=== PATIENT | female | born 1940 | race Caucasian/White ===

== ENCOUNTER 2016-06-03 12:10 | Day surgery (SDC) | payer MEDICARE ==
--- NOTE | ~2016-06-03 | EGD ---
EGD REPORT [facility] [address] [id number] NAME: MARISA SANTA : 40 STATUS : REG [facility] PAT#: [id number] AGE: 76 ADM/REG DATE : 06/03/16 MR#: [id number] REPORT SERV DATE: 06/03/16 DICTATED BY: JUAN JOSÉ VALDEZ DATE: 06/03/16 REPORT STATUS : Draft [facility] DATE: 06/03/16 Endoscopy Center Patient Name: Marisa Santa Date of : 1940 Attending MD: JUAN JOSÉ VALDEZ MD Procedure Date No Time: 06/03/2016 Procedure: Upper GI endoscopy Indications: Epigastric abdominal pain, Dysphagia Referring MD: TATYANA RIVERS MD Medicines: Propofol per Anesthesia Complications: No immediate complications. Estimated blood loss: None. Procedure: Pre-Anesthesia Assessment: - After reviewing the risks and benefits, the patient was deemed in satisfactory condition to undergo the procedure. - Prior to the procedure, a History and Physical was performed, and patient medications and allergies were reviewed. The patient's tolerance of previous anesthesia was also reviewed. The risks and benefits of the procedure and the sedation options and risks were discussed with the patient. All questions were answered, and informed consent was obtained. Prior Anticoagulants: The patient has taken no previous anticoagulant or antiplatelet agents. ASA Grade Assessment: II - A patient with mild systemic disease. After reviewing the risks and benefits, the patient was deemed in satisfactory condition to undergo the procedure. After obtaining informed consent, the endoscope was passed under direct vision. Throughout the procedure, the patient's blood pressure, pulse, and oxygen saturations were monitored continuously. The GIF [id number] was introduced through the mouth, and advanced to the third part of duodenum. The upper GI endoscopy was accomplished without difficulty. The patient tolerated the procedure well. Findings: A mild Schatzki ring (acquired) was found at the gastroesophageal junction. A guidewire was placed and the scope was withdrawn. Dilation was performed with a Savary dilator with no resistance at 48 Fr. Estimated blood loss: none. A 3 cm hiatus hernia was present. The examined duodenum was normal. Impression: - Mild Schatzki ring. Dilated. EGD REPORT [address] [address] NAME: MARISA SANTA : [birth year] STATUS : REG [facility] PAT#: [id number] AGE: 76 ADM/REG DATE : 06/03/16 MR#: [id number] REPORT SERV DATE: 06/03/16 DICTATED BY: JUAN JOSÉ VALDEZ DATE: 06/03/16 REPORT STATUS : Draft [facility]: [facility] DATE: 06/03/16 - Hiatus hernia. - Normal examined duodenum. Recommendation: - Discharge patient to home (ambulatory). - Return to previous diet. - Continue present medications. - Take Prilosec OTC 20 mg daily before meal for 2 months. - Perform a colonoscopy today. - Patient has a contact number available for emergencies. The signs and symptoms of potential delayed complications were discussed with the patient. Return to normal activities tomorrow. Written discharge instructions were provided to the patient. Procedure Code(s): --- Professional --- 35557, Esophagogastroduodenoscopy, flexible, transoral; with insertion of guide wire followed by passage of dilator(s) through esophagus over guide wire Diagnosis Code(s): --- Professional --- K22.2, Esophageal obstruction K44.9, Diaphragmatic hernia without obstruction or gangrene R10.13, Epigastric pain R13.10, Dysphagia, unspecified CPT copyright 2013 [employer]. All rights reserved. The codes documented in this report are preliminary and upon cap jewel plate assembler review may be revised to meet current compliance requirements. JUAN JOSÉ VALDEZ MD 06/03/2016 1:41 PM This report has been signed electronically. Number of Addenda: 0 Note Initiated On: 06/03/2016 1:28 PM Scope Withdrawal Time 0 hours 0 minutes 0 seconds [address] [id number]
--- NOTE | ~2016-06-03 | EGD ---
EGD REPORT [facility] [address] [address] NAME: MARISA SANTA : 40 STATUS : REG [facility] PAT#: [id number] AGE: 76 ADM/REG DATE : 06/03/16 MR#: [id number] REPORT SERV DATE: 06/03/16 DICTATED BY: JUAN JOSÉ VALDEZ DATE: 06/03/16 REPORT STATUS : Draft TRANSCRIBED BY: [facility] DATE: 06/03/16 Endoscopy Center Patient Name: Marisa Santa Date of : 1940 Attending MD: JUAN JOSÉ VALDEZ MD Procedure Date No Time: 06/03/2016 Procedure: Colonoscopy Indications: Follow-up for history of adenomatous polyps in the colon, Last colonoscopy: May 2011 Referring MD: TATYANA RIVERS MD Medicines: Propofol per Anesthesia Complications: No immediate complications. Estimated blood loss: None. Procedure: Pre-Anesthesia Assessment: - After reviewing the risks and benefits, the patient was deemed in satisfactory condition to undergo the procedure. - Prior to the procedure, a History and Physical was performed, and patient medications and allergies were reviewed. The patient's tolerance of previous anesthesia was also reviewed. The risks and benefits of the procedure and the sedation options and risks were discussed with the patient. All questions were answered, and informed consent was obtained. Prior Anticoagulants: The patient has taken no previous anticoagulant or antiplatelet agents. ASA Grade Assessment: II - A patient with mild systemic disease. After reviewing the risks and benefits, the patient was deemed in satisfactory condition to undergo the procedure. After I obtained informed consent, the scope was passed under direct vision. Throughout the procedure, the patient's blood pressure, pulse, and oxygen saturations were monitored continuously. The CF [id number] was introduced through the anus and advanced to the cecum, identified by appendiceal orifice and ileocecal valve. The colonoscopy was performed with difficulty due to significant looping and a tortuous colon. Successful completion of the procedure was aided by applying abdominal pressure. The ileocecal valve and appendiceal orifice were photographed. The patient tolerated the procedure well. The quality of the bowel preparation was good. The bowel preparation used was split dose polyethylene glycol (PEG). Scope withdrawal time was greater than 6 minutes. Findings: EGD REPORT [address] [address] NAME: MARISA SANTA : [birth year] STATUS : REG [facility] PAT#: [id number] AGE: 76 ADM/REG DATE : 06/03/16 MR#: [id number] REPORT SERV DATE: 06/03/16 DICTATED BY: JUAN JOSÉ VALDEZ DATE: 06/03/16 REPORT STATUS : Draft TRANSCRIBED BY: [facility] DATE: 06/03/16 The perianal and digital rectal examinations were normal. Pertinent negatives include normal sphincter tone. Non-bleeding internal hemorrhoids were found during retroflexion and were moderate. Multiple small-mouthed diverticula were found in the sigmoid colon. A sessile polyp was found in the ascending colon. The polyp was 8 mm in size. The polyp was removed with a hot snare. Resection and retrieval were complete. Estimated blood loss: none. The exam was otherwise without abnormality. Impression: - Non-bleeding internal hemorrhoids. - Moderate diverticulosis in the sigmoid colon. - The examination was otherwise normal. - Irritable bowel syndrome with diarrhea. Recommendation: - Discharge patient to home (ambulatory). - High fiber diet indefinitely. - Continue present medications. - Discontinue pepermint oil and begin IBgard 1-2 twice daily as needed for abdominal pain. - Await pathology results. - Repeat colonoscopy in 5 years for surveillance. - Return to GI clinic PRN. - Patient has a contact number available for emergencies. The signs and symptoms of potential delayed complications were discussed with the patient. Return to normal activities tomorrow. Written discharge instructions were provided to the patient. Procedure Code(s): --- Professional --- 40611, Colonoscopy, flexible, proximal to splenic flexure; with removal of tumor(s), polyp(s), or other lesion(s) by snare technique Diagnosis Code(s): --- Professional --- K64.8, Other hemorrhoids K58.9, Irritable bowel syndrome without diarrhea K57.30, Diverticulosis of large intestine without perforation or abscess without bleeding Z86.010, Personal history of colonic polyps CPT copyright 2013 [employer]. All rights reserved. The codes documented in this report are preliminary and upon passenger car cleaning supervisor review may be revised to meet current compliance requirements. EGD REPORT [facility] [address] [address] NAME: MARISA SANTA : 40 STATUS : REG [facility] PAT#: [id number] AGE: 76 ADM/REG DATE : 06/03/16 MR#: [id number] REPORT SERV DATE: 06/03/16 DICTATED BY: JUAN JOSÉ VALDEZ DATE: 06/03/16 REPORT STATUS : Draft TRANSCRIBED BY: [facility] DATE: 06/03/16 JUAN JOSÉ VALDEZ MD 06/03/2016 2:08 PM This report has been signed electronically. Number of Addenda: 0 Note Initiated On: 06/03/2016 1:29 PM Scope Withdrawal Time 0 hours 7 minutes 15 seconds [address] [id number]
[~2016-06-03 12:10] MED LIST: ASAB PO; BELLADONNA PO; CALTRA600D PO; CO Q-10100 MG PO; HARD NAILS PO; HOMEOPATHIC MEDS PO; NORV5 PO; VITAMIN D31000 UNIT PO; VITC500 PO; VITE PO; [UNRECOGNIZED DRUG - OTHER] PO
== END 2016-06-03 23:59 | disposition home or self-care (01) ==
LOC: DMU 12:10
PROVIDERS: Internal Medicine Gastroenterology
PROC: 0DBK8ZZ Excision of Ascending Colon, Via Natural or Artificial Opening Endoscopic (ICD-10-PCS; principal; 2016-06-03 13:45)
PROC: 0D748ZZ Dilation of Esophagogastric Junction, Via Natural or Artificial Opening Endoscopic (ICD-10-PCS; 2016-06-03 13:45)
DX: D12.2 Benign neoplasm of ascending colon (principal); Z86.010 Personal history of colon polyps; K64.8 Other hemorrhoids; K57.30 Diverticulosis of large intestine without perforation or abscess without bleeding; K58.0 Irritable bowel syndrome with diarrhea; K22.2 Esophageal obstruction; K21.9 Gastro-esophageal reflux disease without esophagitis; I10 Essential (primary) hypertension; H26.9 Unspecified cataract; Z79.82 Long term (current) use of aspirin; Z79.899 Other long term (current) drug therapy; Z90.89 Acquired absence of other organs; Z90.710 Acquired absence of both cervix and uterus; Z98.890 Other specified postprocedural states
CPT/HCPCS: 88305